=== PATIENT | male | born 1990 | race African-American/Black ===

== ENCOUNTER 2017-08-12 10:23 | Emergency (ER) | payer MEDICAID ==
[~2017-08-12] VITALS: Ht 180.3 cm; Wt 66.0 kg
[2017-08-12] MEDS ORDERED: HYDROCODONE/ACETAMINOPHEN 5/325MG TABLET PO ONE (11:30)
[2017-08-12 12:55] VITALS: BP 110/65
== END 2017-08-12 13:15 | disposition home or self-care (01) ==
LOC: ER 11:16
DX: M54.2 Cervicalgia (principal); M54.9 Dorsalgia, unspecified; R07.81 Pleurodynia; V49.59XA Passenger injured in collision with other motor vehicles in traffic accident, initial encounter; Y93.89 Activity, other specified; Y92.488 Other paved roadways as the place of occurrence of the external cause
CPT/HCPCS: 71020; 99284